=== PATIENT | female | born 1955 | race Caucasian/White ===

== ENCOUNTER 2017-06-28 12:54 | Observation (INO) ==
[2017-06-28] MEDS ORDERED: 0.9 % Sodium Chloride 1,000 ML IVC ONE (13:30)
[2017-06-28 13:53] LABS: Basophils # 0.1 K/mcL (0.0-0.2); Basophils % 0.7 %; Eosinophils # 0.1 K/mcL (0.0-0.6); Hematocrit 43.2 % (35.3-44.9); Hemoglobin 13.7 g/dL (11.5-15.4); Immature Granulocytes % 0.5 % (0-4); Lymphocytes # 2.8 K/mcL (0.6-4.6); Lymphocytes % 34.6 %; Mean Corpuscular HGB Conc 31.7 g/dL (31.6-35.5); Mean Corpuscular Hemoglobin 31.2 pg (28.0-33.3); Mean Corpuscular Volume 98.4 fL (83.0-100.0); Mean Platelet Volume 10.6 fL (9.4-12.4); Monocytes # 0.7 K/mcL (0.0-1.3); Monocytes % 8.6 %; Neutrophils # 4.5 K/mcL (1.6-8.9); Platelet Count 267 K/mcL (140-400); Red Blood Count 4.39 M/mcL (3.82-4.97); Red Cell Distribution Width 13.1 % (11.5-14.5); Segmented Neutrophils % 54.6 %
[2017-06-28 14:02] LABS: Bilirubin,Urine Negative (Negative); Blood,Urine Negative (Negative); Clarity,Urine Clear (Clear); Color,Urine Yellow (Yellow); Glucose,Urine (UA) Normal (Normal); Ketones,Urine Negative (Negative); Leukocyte Esterase,Urine Negative (Negative); Nitrite,Urine Negative (Negative); Protein,Urine Negative (Neg-Trace); Specific Gravity,Urine > 1.030 (1.010-1.025); Urobilinogen,Urine Normal (Normal)
[2017-06-28 14:13] LABS: Alanine Aminotransferase 8 Units/L (7-52); Albumin 4.2 g/dL (3.5-5.7); Albumin/Globulin Ratio 1.6 (1.1-2.2); Alkaline Phosphatase 70 Units/L (34-104); Aspartate Amino Transferase 11 Units/L (13-39); BUN/Creatinine Ratio 15 (6-26); Bilirubin,Direct 0.1 mg/dL (0.0-0.2); Bilirubin,Indirect 0.3 mg/dL (0.0-1.2); Bilirubin,Total 0.4 mg/dL (0.3-1.0); Blood Urea Nitrogen 11 mg/dL (8-23); Calcium 9.6 mg/dL (8.6-10.3); Carbon Dioxide 29 mEq/L (23-29); Chloride 109 mEq/L (98-107); Globulin 2.6 g/dL (2.4-3.5); Glucose 96 mg/dL (70-105); Lipase 18 Units/L (11-82); Osmolality,Calculated 291 (280-300); Potassium 3.7 mEq/L (3.5-5.1); Sodium 141 mEq/L (136-145); Total Protein 6.8 g/dL (6.4-8.9); eGFR For African Americans > 60 (> 60); eGFR For Non-African Americans > 60 (> 60)
--- NOTE | 2017-06-28 14:15 | Emergency Department Note ---
Disposition Clinical Impression: Small bowel obstruction Disposition: Admitted As Inpatient Condition: Fair Referrals: Unique Odonnell PAPER COATING MACHINE OPERATOR [Primary Care Provider] - Forms: ED Satisfaction Letter, Work/School Release Time of Disposition: 14:29 General Adult HPI - General Chief complaint: ED Abdominal Pain Stated complaint: Small bowel obstruction; sent per Dr. Lee Time Seen by Provider: 06/28/17 13:23 Source: patient Mode of arrival: ambulatory Limitations: no limitations Nursing Notes Reviewed: Yes Vital Signs Reviewed: Yes - History of Present Illness HPI Narrative: 61-year-old female with a history of hypertension presents for evaluation of abdominal pain and known small bowel structure. Patient is a poor historian and states even dealing with abdominal pain for chronically over several months. States she has been having loose stools over the past month. Patient also been having decreased oral intake. Patient states she been having some nausea and vomiting intermittently over the past couple weeks. Denies any fevers. Notes her pain to be in the epigastrium. Patient does still note flatus. Denies history of small bowel structures but does have a surgical history which includes hysterectomy, appendectomy, abdominal hernia repair, as well as having her gallbladder removed. Patient denies any pain at this time. Pain Scale: 7 - Related Data Allergies Allergy/AdvReac Type Severity Reaction Status Date / Time aspirin AdvReac Rash Verified 06/28/17 13:07 All systems ED: reviewed and negative except as stated. Constitutional: Denies: fever Cardiovascular: Denies: chest pain Respiratory: Denies: cough, dyspnea Gastrointestinal: Reports: abdominal pain, nausea, vomiting, diarrhea Past Medical History - Past Medical History Source: patient Medical history: Reports: hyperlipidemia, hypertension Psychiatric history: Reports: no psych history - Social History Smoking Status: Current every day smoker Smokeless Tobacco Status: No Alcohol use: Reports: none Drug use: Reports: none Physical Exam - General Limitations: no limitations General appearance: alert, in no apparent distress - Head Head exam: atraumatic, normocephalic, normal inspection - Eye Eye exam: Present: normal appearance, EOMI - ENT ENT exam: normal exam, normal oropharynx, mucous membranes moist - Neck Neck exam: Present: normal inspection - Chest Chest inspection: Present: normal inspection - Respiratory Respiratory exam: Present: other (DIFFUSELY decrease breath sounds). Absent: respiratory distress - Cardiovascular Cardiovascular exam: Present: regular rate - Abdominal Exam Abdominal exam: Present: soft, Non-Tender, hyperactive bowel sounds. Absent: guarding, rebound - Extremities Exam Extremities exam: Present: normal inspection. Absent: pedal edema - Back Exam Back exam: Present: normal inspection - Neurological Exam Neurological exam: Present: alert - Skin Skin exam: Present: warm, dry, intact, normal color Course Course Narrative: Patient's CT abdomen and pelvis reviewed from outpatient setting. Appears to have a small bowel obstruction with a closed loop. Transition point in the right lower quadrant. Patient is denying any pain medicine at this time. Patient was given IV fluids. Vital Signs Temperature 98.6 F 06/28/17 13:01 Pulse Rate 72 06/28/17 13:01 Respiratory Rate 18 06/28/17 13:01 Blood Pressure 160/83 06/28/17 13:01 O2 Sat by Pulse Oximetry 96 06/28/17 13:01 Temperature 98.6 F 06/28/17 13:01 Pulse Rate 67 06/28/17 13:42 Respiratory Rate 18 06/28/17 13:42 Blood Pressure 143/106 06/28/17 13:42 O2 Sat by Pulse Oximetry 98 06/28/17 13:42 Oxygen Delivery Oxygen Delivery Room Air Medical Decision Making - Lab Data Result diagrams: 06/28/17 13:35 06/28/17 13:35 Lab Results 06/28/17 06/28/17 06/28/17 Range/Units 13:35 13:35 13:35 WBC 8.2 (4.3-11.1) K/mcL RBC 4.39 (3.82-4.97) M/mcL Hgb 13.7 (11.5-15.4) g/dL Hct 43.2 (35.3-44.9) % MCV 98.4 (83.0-100.0) fL MCH 31.2 (28.0-33.3) pg MCHC 31.7 (31.6-35.5) g/dL RDW 13.1 (11.5-14.5) % Plt Count 267 (140-400) K/mcL MPV 10.6 (9.4-12.4) fL Immature Gran % 0.5 (0-4) % Seg Neutrophils % 54.6 % Lymphocytes % 34.6 % Monocytes % 8.6 % Eosinophils % 1.0 % Basophils % 0.7 % Neutrophils # 4.5 (1.6-8.9) K/mcL Lymphocytes # 2.8 (0.6-4.6) K/mcL Monocytes # 0.7 (0.0-1.3) K/mcL Eosinophils # 0.1 (0.0-0.6) K/mcL Basophils # 0.1 (0.0-0.2) K/mcL Sodium 141 (136-145) mEq/L Potassium 3.7 (3.5-5.1) mEq/L Chloride 109 H (98-107) mEq/L Carbon Dioxide 29 (23-29) mEq/L BUN 11 (8-23) mg/dL Creatinine 0.74 (0.60-1.20) mg/dL Est GFR ( Amer) > 60 (> 60) Est GFR (Non-Af Amer) > 60 (> 60) BUN/Creatinine Ratio 15 (6-26) Glucose 96 (70-105) mg/dL Calculated Osmolality 291 (280-300) Lactic Acid (0.5-2.2) mmol/L Calcium 9.6 (8.6-10.3) mg/dL Total Bilirubin 0.4 (0.3-1.0) mg/dL Direct Bilirubin 0.1 (0.0-0.2) mg/dL Indirect Bilirubin 0.3 (0.0-1.2) mg/dL AST 11 L (13-39) Units/L ALT 8 (7-52) Units/L Alkaline Phosphatase 70 (34-104) Units/L Serum Total Protein 6.8 (6.4-8.9) g/dL Albumin 4.2 (3.5-5.7) g/dL Globulin 2.6 (2.4-3.5) g/dL Albumin/Globulin Ratio 1.6 (1.1-2.2) Lipase 18 (11-82) Units/L Urine Color Yellow (Yellow) Urine Clarity Clear (Clear) Urine pH 6.0 (5.0-8.0) pH Units Ur Specific [place] > 1.030 H (1.010-1.025) Urine Protein Negative (Neg-Trace) mg/dL Urine Glucose (UA) Normal (Normal) mg/dL Urine Ketones Negative (Negative) mg/dL Urine Blood Negative (Negative) Urine Nitrite Negative (Negative) Urine Bilirubin Negative (Negative) Urine Urobilinogen Normal (Normal) mg/dL Ur Leukocyte Esterase Negative (Negative) Ur Culture Indicated? NO (NO) 06/28/17 Range/Units 13:35 WBC (4.3-11.1) K/mcL RBC (3.82-4.97) M/mcL Hgb (11.5-15.4) g/dL Hct (35.3-44.9) % MCV (83.0-100.0) fL MCH (28.0-33.3) pg MCHC (31.6-35.5) g/dL RDW (11.5-14.5) % Plt Count (140-400) K/mcL MPV (9.4-12.4) fL Immature Gran % (0-4) % Seg Neutrophils % % Lymphocytes % % Monocytes % % Eosinophils % % Basophils % % Neutrophils # (1.6-8.9) K/mcL Lymphocytes # (0.6-4.6) K/mcL Monocytes # (0.0-1.3) K/mcL Eosinophils # (0.0-0.6) K/mcL Basophils # (0.0-0.2) K/mcL Sodium (136-145) mEq/L Potassium (3.5-5.1) mEq/L Chloride (98-107) mEq/L Carbon Dioxide (23-29) mEq/L BUN (8-23) mg/dL Creatinine (0.60-1.20) mg/dL Est GFR ( Amer) (> 60) Est GFR (Non-Af Amer) (> 60) BUN/Creatinine Ratio (6-26) Glucose (70-105) mg/dL Calculated Osmolality (280-300) Lactic Acid 1.1 (0.5-2.2) mmol/L Calcium (8.6-10.3) mg/dL Total Bilirubin (0.3-1.0) mg/dL Direct Bilirubin (0.0-0.2) mg/dL Indirect Bilirubin (0.0-1.2) mg/dL AST (13-39) Units/L ALT (7-52) Units/L Alkaline Phosphatase (34-104) Units/L Serum Total Protein (6.4-8.9) g/dL Albumin (3.5-5.7) g/dL Globulin (2.4-3.5) g/dL Albumin/Globulin Ratio (1.1-2.2) Lipase (11-82) Units/L Urine Color (Yellow) Urine Clarity (Clear) Urine pH (5.0-8.0) pH Units Ur Specific [place] (1.010-1.025) Urine Protein (Neg-Trace) mg/dL Urine Glucose (UA) (Normal) mg/dL Urine Ketones (Negative) mg/dL Urine Blood (Negative) Urine Nitrite (Negative) Urine Bilirubin (Negative) Urine Urobilinogen (Normal) mg/dL Ur Leukocyte Esterase (Negative) Ur Culture Indicated? (NO) - Radiology Data Radiology results reviewed: Yes I reviewed the patient's radiology results. CT/CT abd pelvis w iv and oral IMPRESSION: 1. Findings consistent with small-bowel obstruction with evidence of small bowel fecalization. Closed loop obstruction cannot be excluded. Questionable transition point in the right lower quadrant. 2. Diverticulosis without evidence of diverticulitis. Findings were discussed with the nurse practitioner Unique Lazcano at 11:02 am on 06/28/2017. S.B.Bebo - Perez.Rashaad Situation: Demographics Background: Presenting Complaint Assessment: Vital Signs, Course and respsone to treatment, Patient/Family Expectation Recommendation: Barrier(s) to disposition, Recommendation based on pending studies, treatments, or consults S.B.ASouleymane Report Given to: Dr. Fariha Cadena Repor Time: 14:29 Attestation Statement - Attestation Attestation: I dr woods examined this patient and my medical decision-making was reviewed with the Resident Physician. I agree with the documented findings, disposition and treatment plan as described except to the extent set forth below. CT done as an outpatient today shows evidence of a small bowel obstruction. No history of this in the past although the patient has had multiple surgeries on the abdomen with a hysterectomy and things. Likely secondary to adhesions. Patient will need to be admitted for further workup of the small bowel obstruction. We will keep nothing by mouth. IV fluids and pain meds. If she has any persistent vomiting would place an NG tube at that time if needed.--DR woods
[2017-06-28] MEDS ORDERED: Ondansetron 4 MG/2 ML VIAL IVP ONE (14:18)
[2017-06-28] MEDS ORDERED: *HR* Promethazine 25 MG/ML VIAL IVP PRN (15:49)
[2017-06-28] MEDS ORDERED: Naloxone 0.4 MG/ML INJ IVP PRN (15:49)
[2017-06-28] MEDS ORDERED: Acetaminophen 325 MG TABLET PO PRN (15:49)
[2017-06-28] MEDS ORDERED: *HR* HYDROcodone/Acet 5/325 mg TABLET PO PRN (15:49)
[2017-06-28] MEDS ORDERED: Ondansetron 4 MG/2 ML VIAL IVP PRN (15:49)
--- NOTE | 2017-06-28 16:03 | Internal Med History&Physical ---
Date of Encounter: 06/28/17 Time of Encounter: 14:45 Assessment and Plan (1) Small bowel obstruction Current visit: Yes Status: Acute Place the pt into Med Surg for observation Reviewed her CT of Abd report.. Showed SBO with Small bowel fecalization, Diverticulosis with out diverticulitis She does need EGD and Colonoscopy Talked to surgeon Dr. Barfield NPO for now IV hydration No need of NG tube continue symptomatic and supportive care continue IV pain medication as needed (2) Constipation Current visit: Yes Status: Acute Started on scheduled bowel regimen Qualifiers: Constipation type: slow transit constipation Qualified Code(s): K59.01 - Slow transit constipation (3) HLD (hyperlipidemia) Current visit: Yes Status: Acute resumed home meds Qualifiers: Hyperlipidemia type: unspecified Qualified Code(s): E78.5 - Hyperlipidemia , unspecified (4) HTN (hypertension) Current visit: Yes Status: Chronic Stable with home meds Qualifiers: Hypertension type: essential hypertension Qualified Code(s): I10 - Essential (primary) hypertension (5) Morbid obesity with BMI of 40.0-44.9, adult Current visit: Yes Status: Acute Internal Medicine - H&P: HPI Chief complaint: Abdominal pain Admitted From: Emergency Dept Plans for Post Hospital Care: Home History of present illness: Ms. Solano is a 61 year old female with known past medical history of hypertension, hyperlipidemia, depression, hypothyroidism and severe peripheral vascular disease currently on pletal pt presented emergency room with worsening abdominal pain. Pt did mention she has been having chronic recurrent abdominal pain for almost 6 months , now it seems to be worsening and associated with nausea. Patient also been having decreased oral intake. She had a CT scan abdomen done as an occupation by her primary care doctor which showed small bowel obstruction with small bowl fecalization. patient was transferred to our emergency room for further evaluation. Pt is resting comfortably now. Abdominal pain is tolerable with pain medication. Denied of any active vomiting now Past Med Surg Social Fam HX - Past Medical History Medical history: hyperlipidemia, hypertension Psychiatric history: no psych history - Past Surgical History Surgical History: no surgical history - Social History Smoking Status: Current every day smoker Smokeless Tobacco Status: No Alcohol use: none Drug use: none - Additional Family History Additional family history: Family hsitory reviewed and non contribuitory to current problem... Denied any family history of colon cancer/stomach cancer Internal Medicine - H&P: Meds Cilostazol [Pletal] 100 mg PO BID 06/28/17 [History] Citalopram Hydrobromide [Citalopram HBr] 40 mg PO DAILY 06/28/17 [History] Furosemide [Lasix] 40 mg PO HS 06/28/17 [History] Furosemide [Lasix] 80 mg PO QAM 06/28/17 [History] HYDROcodone/Acet 5/325 mg [[place] 5-325 mg] 1 tab PO Q6H PRN 06/28/17 [History] Levothyroxine [Synthroid] 150 mcg PO DAILY 06/28/17 [History] Meloxicam [Meloxicam] 7.5 mg PO DAILY 06/28/17 [History] Pravastatin Sodium [Pravachol] 40 mg PO HS 06/28/17 [History] 3 Allergy/AdvReac Type Severity Reaction Status Date / Time aspirin AdvReac Rash Verified 06/28/17 13:07 All Systems PM: A 10-system review of systems was performed and is negative for pertinent findings except as documented above in the HPI. Review of systems: All the systems are reviewed everything is benign except the systems and symptoms I mentioned in the history of present illness - Constitutional Vitals: Temp Pulse Resp BP Pulse Ox 98.6 F 63 18 132/61 95 06/28/17 13:01 06/28/17 15:13 06/28/17 15:13 06/28/17 15:13 06/28/17 15:13 General appearance: Present: cooperative, A&O X 3, answers questions appropriately - Head Head exam: Present: atraumatic, normal inspection - Neck Neck exam general surgery: Present: supple - Respiratory Respiratory exam: Present: decreased breath sounds. Absent: rales, respiratory distress, rhonchi, wheezes - Cardiovascular Cardiovascular exam: Present: RRR, +S1, +S2. Absent: tachycardia - GI/Abdominal GI/Abdominal exam: Present: distended, hypoactive bowel sounds, soft, tenderness (mild tenderness aj umbelical region). Absent: rebound, rigid - Extremities Exam Extremities exam: Absent: calf tenderness, pedal edema, tenderness - Back Exam Back exam: Absent: CVA tenderness (L), CVA tenderness (R) - Neurological Exam Neurological exam: Present: alert, oriented X3 - Psychiatric Psychiatric exam: Present: normal affect, normal mood - Skin Skin exam: Absent: rash Internal Med - H&P Results - Labs CBC & Chem 7: 06/28/17 13:35 06/28/17 13:35
--- NOTE | 2017-06-28 16:39 | Event Note ---
<Tammy Zarate - Last Filed: 06/28/17 16:34> Date of Encounter: 06/28/17 Time of Encounter: 15:45 Patient with long-standing history of chronic constipation likely secondary to poor diet and chronic pain medication. She reports a one-month or so history of abdominal cramping in the mid epigastric relieved by bowel movements, denies changes in bowel habits, and denies S/S of hematemesis, melena, or hematochezia. She reports imtermittent episodes of liquid diarrhea. She reported this to her family provider who had ordered a CT of the abdomen and pelvis with contrast. CT noted a possible small bowel obstruction and also have a significant stool burden. She states that after the CT was completed, she went to [facility] and 8 a cheeseburger and a Coke. She states she had a soft bowel movement this morning. While she was at [facility], she received a call and states she was advised to come to the hospital for admission and evaluation. Her symptoms and assessment are consistent with chronic constipation as opposed to a small bowel obstruction. She is recommended to be treated for constipation per primary team, take MiraLAX daily as an outpatient, increase fiber and water intake, and can follow-up with Dr. Barfield as an outpatient and approximately 4 weeks to discuss outpatient colonoscopy. Patient further advised that after constipation was treated by the primary team if her symptoms have not resolved, surgery could be called back for discussion of possible inpatient colonoscopy versus the recommended outpatient follow-up. Patient and her brother are agreeable. <Josafat Barfield - Last Filed: 06/28/17 17:42> Date of Encounter: 06/28/17 I have personally seen and examined the patient. I have reviewed pertinent labs , imaging, progress notes, including this one. I have discussed with Tammy and agree with the above assessment and plan.
[2017-06-28] MEDS: D5% in 0.45% NACL 1,000 ML IVC SCH (18:24)
[2017-06-28] MEDS: Sennosides/Docusate Sodium TABLET PO SCH (20:52)
[2017-06-29] MEDS: D5% in 0.45% NACL 1,000 ML IVC SCH ×2 (05:48→14:57)
[2017-06-29 05:52] LABS: Basophils % 0.6 %; Eosinophils # 0.1 K/mcL (0.0-0.6); Eosinophils % 1.3 %; Hematocrit 38.8 % (35.3-44.9); Immature Granulocytes % 0.3 % (0-4); Lymphocytes # 3.3 K/mcL (0.6-4.6); Lymphocytes % 52.6 %; Mean Corpuscular HGB Conc 30.9 g/dL (31.6-35.5); Mean Corpuscular Hemoglobin 31.3 pg (28.0-33.3); Mean Platelet Volume 10.9 fL (9.4-12.4); Monocytes # 0.5 K/mcL (0.0-1.3); Monocytes % 8.7 %; Neutrophils # 2.3 K/mcL (1.6-8.9); Platelet Count 231 K/mcL (140-400); Red Blood Count 3.84 M/mcL (3.82-4.97); Red Cell Distribution Width 13.3 % (11.5-14.5); Segmented Neutrophils % 36.5 %
[2017-06-29 05:58] LABS: BUN/Creatinine Ratio 10 (6-26); Blood Urea Nitrogen 8 mg/dL (8-23); Calcium 8.5 mg/dL (8.6-10.3); Carbon Dioxide 26 mEq/L (23-29); Chloride 112 mEq/L (98-107); Glucose 128 mg/dL (70-105); Magnesium 2.3 mg/dL (1.6-2.6); Osmolality,Calculated 288 (280-300); Potassium 3.9 mEq/L (3.5-5.1); Sodium 139 mEq/L (136-145); eGFR For African Americans > 60 (> 60); eGFR For Non-African Americans > 60 (> 60)
[2017-06-29 08:07] LABS: Thyroid Stimulating Hormone 9.083 mcIU/mL (0.340-5.600)
[2017-06-29] MEDS: Sennosides/Docusate Sodium TABLET PO SCH (08:38)
[2017-06-29] MEDS ORDERED: Ipratropium/Albuterol Neb 3 ML IH PRN (12:25)
--- NOTE | 2017-06-29 12:31 | Internal Med Progress Note ---
Date of Encounter: 06/29/17 Time of Encounter: 12:29 - Assessment and plan (1) Constipation Current Visit: Yes Status: Acute Qualifiers: Constipation type: slow transit constipation Qualified Code(s): K59.01 - Slow transit constipation (2) COPD (chronic obstructive pulmonary disease) Current Visit: Yes Status: Chronic Qualifiers: Qualified Code(s): J44.9 - Chronic obstructive pulmonary disease, unspecified (3) Morbid obesity with BMI of 40.0-44.9, adult Current Visit: Yes Status: Acute (4) HTN (hypertension) Current Visit: Yes Status: Chronic Qualifiers: Hypertension type: essential hypertension Qualified Code(s): I10 - Essential (primary) hypertension - Subjective Interval history: She is in bed, somewhat fatigued looking. Tolerating liquids, she is passing gas but no stools. No abdominal pain noted. She appears to be in no distress. - Constitutional Vitals: Temp Pulse Resp BP Pulse Ox 98 F 63 16 113/56 92 06/29/17 11:58 06/29/17 11:58 06/29/17 11:58 06/29/17 11:58 06/29/17 11:58 General appearance: Present: cooperative, A&O X 3, morbidly obese, answers questions appropriately - ENT ENT exam: Present: mucous membranes moist - Neck Neck exam general surgery: Present: supple, trachea midline - Respiratory Respiratory exam: Present: wheezes Additional comments: Mild end expiratory wheezes throughout all [place], no tachypnea noted. - GI/Abdominal GI/Abdominal exam: Present: normal bowel sounds, soft, no peritoneal signs. Absent: firm, guarding, hepatomegaly, tenderness Internal Medicine: Result - Labs CBC & Chem 7: 06/29/17 05:13 06/29/17 05:13 Labs: Short CBC 06/29/17 Range/Units 05:13 WBC 6.2 (4.3-11.1) K/mcL Hgb 12.0 D (11.5-15.4) g/dL Hct 38.8 (35.3-44.9) % Plt Count 231 (140-400) K/mcL Neutrophils # 2.3 (1.6-8.9) K/mcL BMP 06/29/17 05:13 Sodium 139 Potassium 3.9 Chloride 112 H Carbon Dioxide 26 BUN 8 Creatinine 0.83 Glucose 128 H Calcium 8.5 L Consult Discharge Plan - Plan Referrals: Josafat Barfield MD [Non-Partnered Physician] - 08/01/17 1:15 pm Prescriptions: Levothyroxine [Synthroid] 175 mcg PO 629 #30 tablet Polyethylene Glycol 3350 [MiraLAX] 17 gm PO BID #14 powd.pack
--- NOTE | 2017-06-29 12:35 | Discharge Summary ---
- NOTES TO OUTPATIENT PROVIDER Notes to Outpatient Provider: She needs to be seen in the primary care office within the next 7-14 days. Date of Encounter: 06/29/17 Time of Encounter: 12:34 - Discharge Diagnosis (1) Constipation Priority: Primary Status: Acute Comments: I have appreciated the surgical consultation. There is plan for maybe outpatient endoscopy desired. She is tolerating liquids at this time, her abdomen is quite benign. She can be safely discharged. Make sure she has adequate catharsis either today and upon discharge. With medication. Her TSH is slightly elevated, therefore walloped a dose little bit. I do not believe this is adding significantly to her current issue. Qualifiers: Constipation type: slow transit constipation Qualified Code(s): K59.01 - Slow transit constipation (2) Morbid obesity with BMI of 40.0-44.9, adult Priority: Secondary Status: Acute (3) HTN (hypertension) Priority: Secondary Status: Chronic Qualifiers: Hypertension type: essential hypertension Qualified Code(s): I10 - Essential (primary) hypertension (4) COPD (chronic obstructive pulmonary disease) Priority: Secondary Status: Chronic Qualifiers: Qualified Code(s): J41.0 - Simple chronic bronchitis Hospital course: Ms. Solano is a 61 year old female presented to the ER, with a chief complaint of abdominal pain, CAT scan was done which showed what may be stool in the small bowel and possible small bowel obstruction. Surgery was consulted and was not convinced that there was an instructional but this morning with constipation. She is stable upon discharge no abdominal pain she is tolerating a liquid diet as she is passing flatus her abdomen is quite benign. There is thought that surgery will see her in the outpatient basis for endoscopy. I have adjusted her thyroid medication to some degree which should help long- term, we will make sure she goes home with MiraLAX twice a day I will give her Dulcolax today. She will maintain a bland diet. She did have a little bit of wheezing today, we will give her a treatment, she does smoke. Her labs all been quite stable. I will hold her diuretic, as this may be extremity constipation. Discharge discussed with: patient - Time Spent with Patient Total time spent providing and/or coordinating discharge services: - Discharge Medications Prescriptions: Levothyroxine [Synthroid] 175 mcg PO 0630 #30 tablet Polyethylene Glycol 3350 [MiraLAX] 17 gm PO BID #14 powd.pack Home Medications: Cilostazol [Pletal] 100 mg PO BID 06/28/17 [History] Citalopram Hydrobromide [Citalopram HBr] 40 mg PO DAILY 06/28/17 [History] HYDROcodone/Acet 5/325 mg [[place] 5-325 mg] 1 tab PO Q6H PRN 06/28/17 [History] Meloxicam 7.5 mg PO DAILY 06/28/17 [History] Pravastatin Sodium [Pravachol] 40 mg PO HS 06/28/17 [History] Levothyroxine [Synthroid] 175 mcg PO 0630 #30 tablet 06/29/17 [Rx] Ondansetron [Zofran] 4 mg IVP Q6HR PRN vial 06/29/17 [Rx] Polyethylene Glycol 3350 [MiraLAX] 17 gm PO BID #14 powd.pack 06/29/17 [Rx] Allergies/Adverse Reactions: 3 Allergy/AdvReac Type Severity Reaction Status Date / Time aspirin AdvReac Rash Verified 06/28/17 13:07 Date of admission: 06/28/17 14:42 Primary care physician: dali Odonnell CNP Consults: Gen. surgery, Dr. Barfield, with possible need for outpatient follow-up and endoscopy. Discharging clinician: Kyle Connor Anticipated date of discharge: 06/29/17 - Constitutional Vitals: Temp Pulse Resp BP Pulse Ox 98 F 63 16 113/56 92 06/29/17 11:58 06/29/17 11:58 06/29/17 11:58 06/29/17 11:58 06/29/17 11:58 General appearance: Present: cooperative, A&O X 3, morbidly obese, answers questions appropriately - Neck Neck exam general surgery: Present: supple, trachea midline - Cardiovascular Cardiovascular exam: Present: RRR, +S1, +S2. Absent: tachycardia - GI/Abdominal GI/Abdominal exam: Present: normal bowel sounds, soft, no peritoneal signs. Absent: mass, rigid, tenderness - Extremities Exam Extremities exam: Present: warm. Absent: pedal edema - Patient Status Disposition: Home, Self-Care Condition: Fair - Discharge Instructions Instructions: Constipation (DC) Follow Up With: Josafat Barfield MD [Non-Partnered Physician] - 08/01/17 1:15 pm Unique Odonnell CNP [Primary Care Provider] - (WEB REQUEST ENTERED. OFFICE WILL CALL WITH APPOINTMENT) - Diet and Activity Activity: ambulate only with your walker Diet: other (Full liquid diet until bowels move regularly.)
[2017-06-29 17:15] VITALS: BP 128/73
== END 2017-06-29 18:36 | disposition home or self-care (01) ==
LOC: EMEROO 12:54 → 3ANU 12:54
PROVIDERS: ADMIT Family Medicine; ATTEND Family Medicine